=== PATIENT | female | born 1955 | race Caucasian/White ===

== ENCOUNTER 2022-08-25 02:00 | Emergency (ER) | payer MEDICARE ==
[2022-08-25 02:49] LABS: BILIRUBIN,URINE NEGATIVE (NEGATIVE); GLUCOSE, URINE (UA) NEGATIVE (NEGATIVE); KETONES,URINE (UA) NEGATIVE (NEGATIVE); LEUKOCYTE ESTERASE, URINE NEGATIVE (NEGATIVE); NITRITE,URINE NEGATIVE (NEGATIVE); OCCULT BLOOD,URINE NEGATIVE (NEGATIVE); PROTEIN,URINE NEGATIVE (NEGATIVE); UROBILINOGEN,URINE 0.2 (NORMAL) E.U./dL (NORMAL)
[2022-08-25 02:51] LABS: CLARITY,URINE CLEAR (CLEAR)
--- NOTE | 2022-08-25 02:54 | ED Physician Documentation ---
PD HPI FEMALE - Stated complaint Stated Complaint: FEMALE - Chief complaint Chief Complaint: General - History obtained from History obtained from: Patient - Additional information Additional information: HPI from patient. Patient presents with her who is also registered as ED patient for unrelated c/o. Patient recently moved to [facility], has not established with local PMD yet. Patient c/o urinary incontinence x 1 month. She saw her PMD (in [place]) one week ago, had UA and blood tests, diagnosed with UTI and was prescribed one week course of macrobid. She says symptoms have not improved with this antibiotic. She was not (and is not) having dysuria, frequency. She is able to show me results of the tests on her phone (via patient portal): normal CBC and BMP, and although UA was normal, a urine culture was performed and growth of 50K enterococcus sp. Review of Systems Constitutional: denies: Fever Cardiac: reports: Reviewed and negative Respiratory: reports: Reviewed and negative GI: reports: Reviewed and negative : reports: Incontinent. denies: Dysuria, Frequency PD PAST MEDICAL HISTORY - Allergies Allergies/Adverse Reactions: Allergies Allergy/AdvReac Type Severity Reaction Status Date / Time nickel Allergy Rash Verified 08/25/22 02:19 NSAIDS (Non-Steroidal Allergy Unknown Verified 08/25/22 02:19 Anti-Inflamma sertraline Allergy Unknown Verified 08/25/22 02:19 tree nut Allergy Anaphylaxis Verified 08/25/22 02:19 gabapentin AdvReac Unknown Verified 08/25/22 02:19 iodine AdvReac Hives Verified 08/25/22 02:19 Penicillins AdvReac Anaphylaxis Verified 08/25/22 02:16 PD ED PE NORMAL - Vitals Vital signs reviewed: Yes - General General: Alert and oriented X 3, No acute distress, Well developed/nourished - Abdomen Abdomen: Soft, Non tender - Back Back: No CVA TTP Results - Vitals Vitals: Oxygen O2 Source Room air - Labs Labs: Laboratory Tests 08/25/22 02:22 Urine Color YELLOW Urine Clarity CLEAR Urine pH 6.0 Ur Specific [place] 1.025 Urine Protein NEGATIVE Urine Glucose (UA) NEGATIVE Urine Ketones NEGATIVE Urine Occult Blood NEGATIVE Urine Nitrite NEGATIVE Urine Bilirubin NEGATIVE Urine Urobilinogen 0.2 (NORMAL) Ur Leukocyte Esterase NEGATIVE Ur Microscopic Review NOT INDICATED Urine Culture Comments NOT INDICATED PD Medical Decision Making - ED course Complexity details: reviewed old records (reviewed recent outpatient test results as noted in HPI), reviewed results, considered differential, d/w patient ED course: Moises's UA is normal. Given that her chief and only c/o is urinary incontinence , with normal UA tonight and recent (08/14/22) normal CBC and BMP, further emergent testing is not indicated at this time. Patient advised to follow up with urology, which might require referral from PMD although I encouraged her to contact her insurance provider to inquire about the referral process. Departure - Departure Disposition: 01 Home, Self Care Clinical Impression: Urinary incontinence Qualifiers: Urinary Incontinence type: unspecified incontinence Qualified Code(s): R32 - Unspecified urinary incontinence Condition: Good Instructions: ED Bladder Instability Female Comments: The urinalysis performed tonight was normal. There was no evidence on the urine test of an infection. At this point, no further emergency testing is indicated. Contact your primary care provider as soon as their office is next open. I think you would benefit from seeing a urologist; they can perform test to try to determine why you are having these problems with urinary continence. Discharge Date/Time: 08/25/22 03:41
[2022-08-25 03:41] VITALS: BP 124/90
== END 2022-08-25 03:41 | disposition home or self-care (01) ==
LOC: ED 02:00
DX: R32 Unspecified urinary incontinence (principal)
CPT/HCPCS: 81001; 81003; 87086; 99283

== ENCOUNTER 2022-12-09 11:16 | Outpatient (CLI) | payer MEDICARE | END 2022-12-09 11:17 | disposition critical access hospital (66) | LOC: EMS 11:16 | DX: R07.9 Chest pain, unspecified (principal); M25.512 Pain in left shoulder; R11.2 Nausea with vomiting, unspecified | CPT/HCPCS: A0425; A0427 ==

== ENCOUNTER 2022-12-09 11:44 | Emergency (ER) | payer MEDICARE ==
--- NOTE | 2022-12-09 11:58 | ED Physician Documentation ---
History of Present Illness - Stated complaint Stated Complaint: CP - History obtained from History obtained from: Patient - Additonal information Additional information: The patient is brought to the emergency department by EMS for chief complaint of left-sided chest pain that radiates to her left shoulder and arm. The patient states that she just began to notice this this morning. She states she has no cardiac history as far she knows, but has had swollen feet and lower legs for a long time. She is not currently on a diuretic but does use pressure stockings and elevates to try to help with this. She states she has been feeling a little dyspneic but that she also has a history of diaphragmatic paralysis which she thinks is the main contributor to her sense of dyspnea. The patient denies any fevers or chills. No cough. She states that movement and deep breaths make the chest pain worse. She was nauseated this morning and did vomit and also has had some diarrhea today. No other complaints at this time. No recent dyspnea on exertion that is worse than usual. PD PAST MEDICAL HISTORY - Allergies Allergies/Adverse Reactions: Allergies Allergy/AdvReac Type Severity Reaction Status Date / Time nickel Allergy Rash Verified 12/09/22 11:58 NSAIDS (Non-Steroidal Allergy Unknown Verified 12/09/22 11:58 Anti-Inflamma sertraline Allergy Unknown Verified 12/09/22 11:58 tree nut Allergy Anaphylaxis Verified 12/09/22 11:58 gabapentin AdvReac Unknown Verified 12/09/22 11:58 iodine AdvReac Hives Verified 12/09/22 11:58 Penicillins AdvReac Anaphylaxis Verified 12/09/22 11:58 PD ED PE NORMAL - Vitals Vital signs reviewed: Yes - General General: Alert and oriented X 3, No acute distress, Well developed/nourished - HEENT HEENT: Atraumatic, PERRL, EOMI, Moist mucous membranes - Neck Neck: Supple, no meningeal sign - Cardiac Cardiac: RRR, No murmur - Respiratory Respiratory: No respiratory distress, Clear bilaterally - Abdomen Abdomen: Soft, Non tender, Non distended - Derm Derm: Normal color, Warm and dry, No rash - Extremities Extremities: No deformity, Other (Mild edema, nonpitting, bilateral ankles and feet.) - Neuro Neuro: Alert and oriented X 3 - Psych Psych: Normal mood, Normal affect PD ED PE EXPANDED - Free text exam Free text exam: Reproducible pain upon palpation of left anterior superior chest wall and corresponding intrascapular location on the left back. Results - Vitals Vitals: Oxygen O2 Source Room air - Labs Labs: Laboratory Tests 12/09/22 12/09/22 12/09/22 12:07 12:07 12:07 WBC 4.7 L RBC 3.76 L Hgb 10.8 L Hct 36.1 L MCV 96.0 MCH 28.7 MCHC 29.9 L RDW 12.8 Plt Count 240 MPV 10.3 Neut # (Auto) 2.9 Lymph # (Auto) 1.1 L [place] # (Auto) 0.4 Eos # (Auto) 0.2 Baso # (Auto) 0.0 Absolute Nucleated RBC 0.00 Nucleated RBC % 0.0 Sodium 144 Potassium 3.8 Chloride 103 Carbon Dioxide 28 Anion Gap 13.0 BUN 11 Creatinine 0.8 Estimated GFR (MDRD) 71 L Glucose 97 Calcium 8.4 L Total Bilirubin 0.4 AST 21 ALT 19 Alkaline Phosphatase 75 Troponin I High Sens B-Natriuretic Peptide 104 H Total Protein 6.7 Albumin 4.1 Globulin 2.6 Albumin/Globulin Ratio 1.6 Lipase 31 12/09/22 12:07 WBC RBC Hgb Hct MCV MCH MCHC RDW Plt Count MPV Neut # (Auto) Lymph # (Auto) [place] # (Auto) Eos # (Auto) Baso # (Auto) Absolute Nucleated RBC Nucleated RBC % Sodium Potassium Chloride Carbon Dioxide Anion Gap BUN Creatinine Estimated GFR (MDRD) Glucose Calcium Total Bilirubin AST ALT Alkaline Phosphatase Troponin I High Sens 4.5 B-Natriuretic Peptide Total Protein Albumin Globulin Albumin/Globulin Ratio Lipase PD Medical Decision Making - ED course Complexity details: reviewed old records, reviewed results, re-evaluated patient, considered differential, d/w patient ED course: The patient was evaluated upon arrival with EMS and was worked up with EKG, CBC, troponin, ER abdominal panel, and BNP, as well as chest x-ray, all of which were ordered and reviewed by me. The patient's entire work-up was unremarkable, other than a very slight BNP elevation. I suspected a musculoskeletal source of chest pain, and felt the patient was stable for discharge home. We have discussed the need for follow-up as well as the usual indications for return. Departure - Departure Disposition: 01 Home, Self Care Clinical Impression: Chest wall pain Condition: Stable Instructions: ED Chest Pain Costochondritis Comments: Your EKG, chest x-ray, and labs all look good. There is no evidence of heart attack at this time and you do not have any water in the lungs. Your lab for congestive heart failure was ever so slightly elevated but this in general does not represent any significant disease. At this point in time, the nature of your pain is most consistent with pain that is coming from the muscular/soft tissues of your chest wall, rather than your vital organs. Please follow-up with your doctor for further concerns. You may take ibuprofen 600 mg every 6 hours and Tylenol 650 mg every 4 hours, as needed for discomfort. You may use ice, heat, stretching, and massage, as well. If you become severely short of breath or your pain severely worsens, please return to the emergency department immediately. Discharge Date/Time: 12/09/22 13:07
[2022-12-09 12:18] LABS: BASOPHILS % (AUTO) 0.6 %; EOSINOPHILS # (AUTO) 0.2 10^3/uL (0.0-0.7); EOSINOPHILS % (AUTO) 3.6 %; HCT - HEMATOCRIT 36.1 % (37.0-47.0); HGB - HEMOGLOBIN 10.8 g/dL (12.0-16.0); LYMPHOCYTES # (AUTO) 1.1 10^3/uL (1.5-3.5); LYMPHOCYTES % (AUTO) 24.2 %; MEAN CORPUSCULAR HEMOGLOBIN 28.7 pg (27.0-31.0); MEAN CORPUSCULAR HGB CONC 29.9 g/dL (32.0-36.0); MEAN PLATELET VOLUME 10.3 fL (7.9-10.8); MONOCYTES # (AUTO) 0.4 10^3/uL (0.0-1.0); MONOCYTES % (AUTO) 8.8 %; NEUTROPHILS # (AUTO) 2.9 10^3/uL (1.5-6.6); NEUTROPHILS % (AUTO) 62.6 %; PLT - PLATELET COUNT 240 10^3/uL (130-450); RED BLOOD COUNT 3.76 10^6/uL (4.20-5.40); RED CELL DISTRIBUTION WIDTH 12.8 % (12.0-15.0); WHITE BLOOD COUNT 4.7 x10^3/uL (4.8-10.8)
[2022-12-09 12:29] LABS: ALBUMIN 4.1 g/dL (3.2-5.5); ALBUMIN/GLOBULIN RATIO 1.6 (1.0-2.2); BILIRUBIN,TOTAL 0.4 mg/dL (0.2-1.0); CALCIUM 8.4 mg/dL (8.5-10.3); CREATININE 0.8 mg/dL (0.4-1.0); POTASSIUM 3.8 mmol/L (3.5-5.0); TOTAL PROTEIN 6.7 g/dL (6.7-8.2)
--- NOTE | 2022-12-09 12:30 | XRAY Report ---
PROCEDURE: Chest 1 View X-Ray INDICATIONS: chest pain TECHNIQUE: One view of the chest was acquired. COMPARISON: None. FINDINGS: Surgical changes and devices: None. Lungs and pleura: No pleural effusions or pneumothorax. Lungs are clear. Mediastinum: Mediastinal contours appear normal. Heart size is normal. Bones and chest wall: No suspicious bony lesions. Overlying soft tissues appear unremarkable. IMPRESSION: No acute process. Reviewed by: Caden Francisco MD on 12/09/2022 11:29 AM [facility] Approved by: Caden Francisco MD on 12/09/2022 11:29 AM P[facility]AN Station ID: [id number]
[2022-12-09 12:56] VITALS: BP 130/90
== END 2022-12-09 13:07 | disposition home or self-care (01) ==
LOC: EDUNIT# → EDBD → ED 11:44
DX: R07.89 Other chest pain (principal)
CPT/HCPCS: 36415; 80053; 83690; 83880; 84484; 85025; 93005; 99283; 99284

== ENCOUNTER 2023-02-20 14:45 | Emergency (ER) | payer MEDICARE ==
--- NOTE | 2023-02-20 15:03 | ED Physician Documentation ---
PD HPI UPPER EXT INJURY - Stated complaint Stated Complaint: RT ARM PX - Chief complaint Chief Complaint: Ext Problem - History obtained from History obtained from: Patient - History of Present Illness Location: Right Type of injury: No: Fall, Blunt / blow Where injury occurred: Home Timing - onset: How many days ago (1-2) Timing - duration: Days (1-2) Timing - details: Gradual onset (had some pain at wrist/stiffness for couple days, hurting much worse since yesterday. No noted sudden injury. Has been doing some lifting and gripping helping . Pain at dorsal wrist to forearm and at dorsal base of thumb, hurting with thumb extension.), Still present Improved by: Meds (some improvement with Ibuprofen but not much.) Worsened by: Moving, Palpating Contributing factors: No: Prior ortho surgery Similar symptoms before: Has not had sx before Review of Systems Constitutional: denies: Fever, Chills Skin: denies: Rash, Lesions Neurologic: denies: Focal weakness, Numbness PD PAST MEDICAL HISTORY - Past Medical History Cardiovascular: None Endocrine/Autoimmune: None Musculoskeletal: None - Allergies Allergies/Adverse Reactions: Allergies Allergy/AdvReac Type Severity Reaction Status Date / Time nickel Allergy Rash Verified 02/20/23 14:54 NSAIDS (Non-Steroidal Allergy Unknown Verified 02/20/23 14:54 Anti-Inflamma sertraline Allergy Unknown Verified 02/20/23 14:54 tree nut Allergy Anaphylaxis Verified 02/20/23 14:54 gabapentin AdvReac Unknown Verified 02/20/23 14:54 iodine AdvReac Hives Verified 02/20/23 14:54 Penicillins AdvReac Anaphylaxis Verified 02/20/23 14:54 PD ED PE NORMAL - Vitals Vital signs reviewed: Yes - General General: Alert and oriented X 3, Well developed/nourished, Other (appears uncomfortable due to thumb/wrist pain, holding it guardedly. ) - Derm Derm: Normal color, Warm and dry, No rash - Extremities Extremities: Other (right thumb base dorsally with some tenderness adn pain with thumb extension against resistance. Also dorsal wrist tender into forearm without redness. Not tender percussing volar mid wrist. ) - Neuro Neuro: Alert and oriented X 3, No motor deficit, No sensory deficit Results - Vitals Vitals: Oxygen O2 Source Room air - Rads (name of study) wrist/hand Relevant Findings:: Prelim report reviewed (no fractures nor acute osseous abnormalities. ), EMP independent interpretation of test PD Medical Decision Making - ED course Complexity details: reviewed results, considered differential (has had reptitive lifting and use of hands/wrist. Her symptoms/findings are c/w presume tendonitis at thumb and also at wrist dorsally. Can use thumb spice wrist splint. NSAIDs. pain meds PRN. ), d/w patient Departure - Departure Disposition: 01 Home, Self Care Clinical Impression: Right wrist pain, Wrist tendonitis Forearm sprain Qualifiers: Encounter type: initial encounter Laterality: right Qualified Code(s): S63.501A - Unspecified sprain of right wrist, initial encounter Condition: Stable Record reviewed to determine appropriate education?: Yes Instructions: ED Sprain Wrist Comments: Your x-ray is normal without any signs of bony abnormalities. Clinically this seems like a strain or inflammation of the tendons and muscles in the forearm/wrist. Use the wrist/thumb splint to help protect motion in those areas. You can have it off when rested or as needed. Have it on most of the time otherwise however. Continue with usual medications. Tylenol every 4-6 hours if needed for pains. It should feel better with the splint on and I would anticipate improvement over the next 3 to 5 days but may take a week or 2 to get back towards baseline. Forms: PCP List Discharge Date/Time: 02/20/23 16:12
[2023-02-20 16:15] VITALS: BP 145/67
--- NOTE | 2023-02-20 16:30 | XRAY Report ---
PROCEDURE: Forearm RT INDICATIONS: Trauma TECHNIQUE: 2 views of the forearm were acquired. COMPARISON: None FINDINGS: Bones: No fractures or dislocations. No suspicious bony lesions. Soft tissues: No suspicious soft tissue calcifications or masses. IMPRESSION: No acute bony abnormality. Reviewed by: Jovanny Ruff MD on 02/20/2023 3:28 PM AK[facility] Approved by: Jovanny Ruff MD on 02/20/2023 3:28 PM AKDT Station ID: [id number]
--- NOTE | 2023-02-20 16:36 | XRAY Report ---
PROCEDURE: Wrist 4 View RT INDICATIONS: Trauma TECHNIQUE: 4 views of the wrist were acquired. COMPARISON: None. FINDINGS: Bones: No fractures or dislocations. No suspicious bony lesions. Soft tissues: No suspicious soft tissue calcifications or masses. IMPRESSION: No acute bony abnormality. Reviewed by: Jovanny Ruff MD on 02/20/2023 3:34 PM [facility] Approved by: Jovanny Ruff MD on 02/20/2023 3:34 PM AKDT Station ID: [id number]
== END 2023-02-20 16:12 | disposition home or self-care (01) ==
LOC: ED 14:45
DX: M77.8 Other enthesopathies, not elsewhere classified (principal); S63.501A Unspecified sprain of right wrist, initial encounter; X50.9XXA Other and unspecified overexertion or strenuous movements or postures, initial encounter; Y93.89 Activity, other specified
CPT/HCPCS: 99283

== ENCOUNTER 2023-07-16 15:58 | Emergency (ER) | payer MEDICARE ==
[2023-07-16] MEDS ORDERED: DEXAMETHASONE 10 MG/ML VIAL IM STA (16:57)
--- NOTE | 2023-07-16 17:29 | XRAY Report ---
PROCEDURE: Hip w/Pelvis 2-3V RT INDICATIONS: pain R hip TECHNIQUE: 2 views of the right hip/pelvis COMPARISON: None. FINDINGS: Osseous structures appear intact without acute fracture or dislocation. Degenerative changes of the l ower lumbar spine and bilateral hips. No suspicious osseous lesion. No suspicious soft tissue abnormalities or soft tissue calcifications. IMPRESSION: Right hip without acute fracture or dislocation. Degenerative changes of the bilateral hip and lower lumbar spine. If there is continued clinical concern for pathology or occult fracture, consider follow-up imaging w ith repeat radiographs in 10-14 days and possible advanced imaging (CT, MRI, bone scan) if symptoms p ersist. Reviewed by: Jad Knox MD on 07/16/2023 5:27 PM PST Approved by: Jad Knox MD on 07/16/2023 5:27 PM PST Station ID: [id number]
--- NOTE | 2023-07-16 18:27 | ED Physician Documentation ---
PD HPI LOWER EXT INJURY - Stated complaint Stated Complaint: HIP PX, - Chief complaint Chief Complaint: Ext Problem - History obtained from History obtained from: Patient - Additional information Additional information: The patient comes to the emergency department chief complaint of right hip pain that has been gradually worsening over the last several weeks. She states it starts at her groin area and radiates down through the rest of her leg. She states her has been sick and she has been doing a lot of extra work around the house and property. She states that it just hurts to walk or even stand on it. No distinct injury. No fevers or chills. No other complaints at this time. PD PAST MEDICAL HISTORY - Past Medical History Past Medical History: Yes Cardiovascular: None Neuro: Other Endocrine/Autoimmune: HyPOthyroidism Psych: Depression, Anxiety Musculoskeletal: None - Past Surgical History Past Surgical History: Yes General: Cholecystectomy, Other Ortho: Knee replacement, Other HEENT: Other - Present Medications Home Medications: Ambulatory Orders Medication Instructions Recorded Confirmed predniSONE [Deltasone] 10 mg PO [id number] #[id number] tab 07/16/23 - Allergies Allergies/Adverse Reactions: Allergies Allergy/AdvReac Type Severity Reaction Status Date / Time nickel Allergy Rash Verified 07/16/23 16:02 NSAIDS (Non-Steroidal Allergy Unknown Verified 07/16/23 16:02 Anti-Inflamma sertraline Allergy Unknown Verified 07/16/23 16:02 tree nut Allergy Anaphylaxis Verified 07/16/23 16:02 gabapentin AdvReac Unknown Verified 07/16/23 16:02 iodine AdvReac Hives Verified 07/16/23 16:02 Penicillins AdvReac Anaphylaxis Verified 07/16/23 16:02 - Social History Does the pt smoke?: Yes Smoking Status: Current every day smoker Does the pt drink ETOH?: No Does the pt have substance abuse?: No - Immunizations Immunizations are current?: Yes PD ED PE NORMAL - Vitals Vital signs reviewed: Yes - General General: Alert and oriented X 3, No acute distress, Well developed/nourished - HEENT HEENT: Atraumatic, PERRL, EOMI, Moist mucous membranes - Neck Neck: Supple, no meningeal sign - Cardiac Cardiac: RRR, No murmur - Respiratory Respiratory: No respiratory distress, Clear bilaterally - Abdomen Abdomen: Soft, Non tender, Non distended - Derm Derm: Normal color, Warm and dry, No rash - Extremities Extremities: No deformity, No edema, Other (Tenderness palpation over the Right inguinal ligament, and continuing through the musculature of the right thigh and calf.) - Neuro Neuro: Alert and oriented X 3 - Psych Psych: Normal mood, Normal affect Results - Vitals Vitals: Oxygen O2 Source Room air - Rads (name of study) Right hip x-ray series Relevant Findings:: Final report received, See rad report (Negative) Venous duplex right leg Relevant Findings:: Final report received, See rad report (Negative for DVT) PD Medical Decision Making - ED course Complexity details: reviewed results, re-evaluated patient, considered differential, d/w patient ED course: The patient's imaging studies including x-ray and ultrasound were negative. I discussed with her that there is some mild arthritis on her hip x-ray and that she most likely has an overuse injury to her hip. We have discussed symptomatic management at home, as well as usual indications for follow-up and return. Departure - Departure Disposition: Home, Self Care Clinical Impression: Hip pain, right, Overuse injury Condition: Stable Instructions: Hip Osteoarthritis Exercise Prescriptions: predniSONE [Deltasone] 10 mg PO [id number] #42 tab Comments: Your ultrasound looks good and your hip x-ray shows arthritis but no other abnormalities. Most likely, you have an overuse injury of your hip which is caused it to flareup and then trickled down to the rest your leg. In general, the sorts of things flare and then resolve on their own, but you should make an appointment with your primary doctor to follow-up in case the symptoms become persistent. You should take ibuprofen as well as the prednisone that has been prescribed. The prescription for this has been electronically transmitted to the [facility] pharmacy in [place]. This is your pharmacy of choice on record. You have been given your first dose tonight in the emergency department and may take your next dose tomorrow. Forms: PCP List Discharge Date/Time: 07/16/23 18:34
[2023-07-16 18:43] VITALS: BP 153/86; O2SAT 98
--- NOTE | 2023-07-16 18:53 | Ultrasound Report ---
PROCEDURE: Duplex Ext Veins Right INDICATIONS: R leg pain/calf pain TECHNIQUE: Real-time imaging, as well as color and pulse Doppler interrogation, were performed of the lower extr emity deep veins from the inguinal ligament to the popliteal fossa. Attempted visualization of the ca lf veins was performed. COMPARISON: None. FINDINGS: The deep veins are normally compressible, and free of intraluminal thrombus. Color and pu lse Doppler demonstrate normal phasic intraluminal flow. There is normal augmentation response to di stal compression maneuver. IMPRESSION: No deep venous thrombosis of the visualized lower extremity. Note: Concordant preliminary findings given by the manager transportation upon the completion of the examination to Dr. Chadwick. Reviewed by: Cy Gibson MD on 07/16/2023 5:52 PM [facility] Approved by: Cy Gibson MD on 07/16/2023 5:52 PM [facility] Station ID: [id number]
== END 2023-07-16 18:34 | disposition home or self-care (01) ==
LOC: ED 15:58
DX: M25.551 Pain in right hip (principal); M70.88 Other soft tissue disorders related to use, overuse and pressure other site; E03.9 Hypothyroidism, unspecified; F17.200 Nicotine dependence, unspecified, uncomplicated
CPT/HCPCS: 96372; 99283; 99284

== ENCOUNTER 2023-07-18 15:25 | Outpatient (CLI) | payer MEDICARE | END 2023-07-18 15:26 | disposition home or self-care (01) | LOC: LAB 15:25 | PROVIDERS: ATTEND Registered Nurse | DX: K52.9 Noninfective gastroenteritis and colitis, unspecified (principal) | CPT/HCPCS: 36415; 82784; 86364 ==

== ENCOUNTER 2023-07-23 11:53 | Outpatient (CLI) | payer MEDICARE ==
[2023-07-25 15:09] LABS: GIARDIA LAMBLIA AG EIA Negative (Negative)
[2023-07-30 16:08] LABS: OVA + PARASITE EXAM Final report (.)
== END 2023-07-23 11:54 | disposition home or self-care (01) ==
LOC: LAB.R 11:53
DX: K52.9 Noninfective gastroenteritis and colitis, unspecified (principal)
CPT/HCPCS: 81599; 82653; 87177; 87209; 87329; 87493

== ENCOUNTER 2023-07-26 14:01 | Outpatient (CLI) | payer MEDICARE ==
--- NOTE | 2023-07-29 09:07 | MRI Report ---
PROCEDURE: LUMBAR SPINE WO INDICATIONS: LOW BACK PAIN TECHNIQUE: Noncontrast sagittal T1 spin echo and T2 fast echo, sagittal STIR, axial T1 and T2 fast spin echo thr ough the lumbar spine. In cases with scoliosis, additional coronal T2 fast spin echo may be performe d. COMPARISON: None. FINDINGS: Image quality: Excellent. Alignment and Curvature: Trace retrolisthesis L1 on 2. Otherwise normal alignment. Bone Marrow: Mild degenerative Modic changes at the endplates at L1-2. Marrow is otherwise of normal overall signal. No acute vertebral body compression fractures. Spinal Cord: Conus medullaris terminates at the L1 level. Visualized cord demonstrates normal signa l and size. Paraspinous Soft Tissues: No paravertebral masses. T12-L1: Normal in appearance. L1-L2: Moderate disc height loss and circumferential disc osteophyte. Minor flattening of the ante rior CSF space. Mild facet arthropathy. No significant central canal or foraminal stenosis. L2-L3: Minor circumferential disc osteophyte without significant posterior disc bulge. Mild facet arthropathy. No significant central canal or foraminal stenosis. L3-L4: Mild to moderate disc height loss and mild circumferential disc bulge. Moderate facet arthro sara and ligamentum flavum hypertrophy. Mild central canal narrowing and mild left foraminal narrowi ng. L4-L5: Moderate disc height loss and minimal circumferential disc bulge. Moderate facet arthropathy narrowing the lateral recess ease. [id number] left, and mild right foraminal narrowing. No sig nificant central canal stenosis. L5-S1: Mild left facet arthropathy. No significant central canal or foraminal stenosis. IMPRESSION: 1. Degenerative disc disease, most pronounced at L1-2. 2. Mild facet arthropathy resulting in mild to moderate multilevel foraminal narrowing, most pronounc ed on the left at L4-5. Reviewed by: Radha Chen MD on 07/29/2023 9:06 AM PST Approved by: Radha Chen MD on 07/29/2023 9:06 AM PST Station ID: [id number]
== END 2023-07-26 14:02 | disposition home or self-care (01) ==
LOC: DI 14:01
PROVIDERS: ATTEND Family Medicine
DX: M51.36 Other intervertebral disc degeneration, lumbar region (principal); M48.061 Spinal stenosis, lumbar region without neurogenic claudication; M47.816 Spondylosis without myelopathy or radiculopathy, lumbar region; M47.817 Spondylosis without myelopathy or radiculopathy, lumbosacral region

== ENCOUNTER 2023-11-23 19:44 | Outpatient (CLI) | payer MEDICARE | END 2023-11-23 23:59 | disposition EMS.NT | LOC: EMS 19:44 | DX: R06.4 Hyperventilation (principal); Z63.6 Dependent relative needing care at home ==